=== PATIENT | female | born 1980 | race African-American/Black ===

== ENCOUNTER 2019-09-12 04:53 | Inpatient (IN) ==
[2019-09-12] MEDS ORDERED: ONDANSETRON 4 MG/2 ML VIAL IV PRN (05:03)
[2019-09-12] MEDS ORDERED: LACTATED RINGERS 1,000 ML IV PRN (05:03)
[2019-09-12] MEDS ORDERED: BUTORPHANOL 2 MG/ML VIAL IV PRN (05:03)
[2019-09-12] MEDS ORDERED: MEPERIDINE 50 MG/1 ML VIAL IV PRN (05:03)
[2019-09-12] MEDS ORDERED: OXYTOCIN/LR 20 UNIT/1,000 ML BAG IV SCH (05:30)
[2019-09-12 06:26] LABS: Basophils % 0.1 % (0.0-0.8); Eosinophils % 0.1 % (0.00-10.9); Hematocrit 29.1 VOL% (35.7-47.0); Hemoglobin 9.4 GM/DL (12.0-16.0); Immature Granulocytes % 0.6 %; Immature Granulocytes Absolute 0.04 #; Lymphocytes # 1.3 10*3/uL (1.4-4.0); Lymphocytes % 17.8 % (21.3-54.2); Mean Corpuscular HGB Conc 32.3 GM/DL (32-36); Mean Corpuscular Volume 92.4 FL (87-102); Mean Platelet Volume 9.3 FL (9.6-12.0); Neutrophils % 72.4 % (38.7-73.9); Platelet Count 274 T/CUMM (130-400); Red Blood Count 3.15 MC/CUMM (3.8-5.5); Red Cell Distribution Width 14.5 % (9.3-17.3); White Blood Count 7.1 T/CUMM (4-12)
[2019-09-12 06:50] LABS: Albumin 2.6 G/DL (3.4-5.0); Bilirubin,Total 0.4 MG/DL (0.2-1.0); Calcium 8.6 MG/DL (8.5-10.1); Osmolality,Calculated 270.7 MOS/KG (273-304); Total Protein 6.1 G/DL (6.4-8.3)
[2019-09-12] MEDS ORDERED: TRANEXAMIC ACID 1,000 MG/10 ML VIAL ONE (10:47)
[2019-09-12] MEDS ORDERED: METHYLERGONOVINE 0.2 MG/1 ML AMP ONE (10:47)
[2019-09-12] MEDS ORDERED: miSOPROStoL 200 MCG TABLET ONE (10:47)
[2019-09-12] MEDS ORDERED: LIDOCAINE 1% 50 ML VIAL ONE (10:48)
[2019-09-12] MEDS ORDERED: CARBOPROST TROMETHAMINE 250 MCG/ML AMP IM ONE (10:48)
[2019-09-12 12:38] LABS: Cord Venous Blood HCO3 21.4 MMOL/L; Cord Venous Blood PCO2 43.2 MMHG; Cord Venous Blood PO2 36.2 MMHG
[2019-09-12] MEDS ORDERED: OXYTOCIN/LR 20 UNIT/1,000 ML BAG IV ONE ×2 (15:39→18:56)
[2019-09-12] MEDS ORDERED: LANOLIN 50% CREAM 0.3 OZ TUBE TOP PRN (18:56)
[2019-09-12] MEDS ORDERED: BENZOCAINE 20%/MENTHOL 0.5% SPRAY 56 GM CAN TOP PRN (18:56)
[2019-09-12] MEDS ORDERED: ACETAMINOPHEN 325 MG TABLET PO PRN (18:56)
[2019-09-12] MEDS ORDERED: WITCH HAZEL PADS 100/JAR TOP PRN (18:56)
[2019-09-12] MEDS ORDERED: IBUPROFEN 800 MG TABLET PO PRN (18:56)
[2019-09-12] MEDS ORDERED: MEASLES/MUMPS/RUBELLA VACCINE 0.5 ML VIAL SUBCUT ONE (18:56)
[2019-09-12] MEDS ORDERED: BISACODYL 10 MG SUPP RECTAL PRN (18:56)
[2019-09-12] MEDS ORDERED: oxyCODONE/ACETAMINOPHEN 5-325 MG TABLET PO PRN ×2 (18:56)
[2019-09-12] MEDS ORDERED: DIPH/TET/ACEL PERT BOOSTER VACCINE 0.5 ML VIAL IM ONE (18:56)
[2019-09-12] MEDS ORDERED: RHO(D) IMMUNE GLOBULIN 300 MCG SYRINGE IM ONE (18:56)
[2019-09-12] MEDS ORDERED: HYDROCORTISONE 2.5% RECTAL CREAM 30 GM TUBE TOP PRN (18:56)
[2019-09-12] MEDS: DOCUSATE SODIUM 100 MG CAPSULE PO SCH (21:47)
[2019-09-13 05:36] LABS: Basophils % 0.2 % (0.0-0.8); Eosinophils # 0.1 10*3/uL (0.0-0.87); Eosinophils % 0.7 % (0.00-10.9); Hematocrit 30.5 VOL% (35.7-47.0); Hemoglobin 9.5 GM/DL (12.0-16.0); Immature Granulocytes % 0.6 %; Immature Granulocytes Absolute 0.05 #; Mean Corpuscular HGB Conc 31.1 GM/DL (32-36); Mean Corpuscular Volume 95.6 FL (87-102); Mean Platelet Volume 9.6 FL (9.6-12.0); Monocytes % 7.6 % (1.7-12.7); Neutrophils % 78.9 % (38.7-73.9); Platelet Count 284 T/CUMM (130-400); Red Blood Count 3.19 MC/CUMM (3.8-5.5); Red Cell Distribution Width 14.4 % (9.3-17.3); White Blood Count 8.3 T/CUMM (4-12)
[2019-09-13] MEDS: DOCUSATE SODIUM 100 MG CAPSULE PO SCH ×2 (08:52→20:09)
[2019-09-14 07:13] VITALS: BP 117/73
[2019-09-14] MEDS: DOCUSATE SODIUM 100 MG CAPSULE PO SCH (09:10)
== END 2019-09-14 13:30 | disposition home or self-care (01) | DRG 560 ==
LOC: N.LD 04:53 → N.OB 17:08
PROVIDERS: ADMIT Obstetrics & Gynecology; ATTEND Obstetrics & Gynecology